=== PATIENT | female | born 1940 | race Two or more races ===

== ENCOUNTER 2024-10-14 19:10 | Emergency (ER) | payer MEDICARE ==
[~2024-10-14] VITALS: Ht 154.9 cm; Wt 62.1 kg
[2024-10-14] MEDS ORDERED: ACETAMINOPHEN ES 500 MG TABLET ONE (20:45)
[2024-10-14] MEDS ORDERED: LIDOCAINE 5% (PATCH) 1 EA PATCH TP ONE (20:45)
[2024-10-14] MEDS ORDERED: NAPROXEN 250 MG TABLET ONE (20:46)
[2024-10-14] MEDS: NAPROXEN 250 MG TABLET PO ONE (20:47)
[2024-10-14] MEDS: ACETAMINOPHEN ES 500 MG TABLET PO ONE (20:47)
[2024-10-14] MEDS: LIDOCAINE 5% (PATCH) 1 EA PATCH TP SCH (20:47)
[2024-10-14 22:19] LABS: APPEARANCE,URINE CLEAR (CLEAR); BLOOD, URINE NEGATIVE Ery/uL (NEGATIVE); LEUKOCYTE ESTERASE ,URINE NEGATIVE (NEGATIVE); NITRITE, URINE NEGATIVE (NEGATIVE); UGLUCOSE NEGATIVE (NEGATIVE)
[2024-10-14] MEDS ORDERED: IBUP-1490 PO (22:22)
[2024-10-14] MEDS ORDERED: ACET-73 PO (22:22)
[2024-10-14 22:27] VITALS: BP 134/77; TEMP 98.8; O2SAT 97
== END 2024-10-14 22:27 | disposition home or self-care (01) ==
LOC: ER 19:15
DX: M16.12 Unilateral primary osteoarthritis, left hip (principal); M54.50 Low back pain, unspecified; I10 Essential (primary) hypertension
CPT/HCPCS: 73502